=== PATIENT | female | born 1965 | race Caucasian/White ===

== ENCOUNTER → 2019-07-04 | Outpatient (CLI) | payer OTHER | LOC: M.RAD 16:06 | DX: M16.11 Unilateral primary osteoarthritis, right hip (principal); M48.02 Spinal stenosis, cervical region; M25.78 Osteophyte, vertebrae; M50.322 Other cervical disc degeneration at C5-C6 level; V89.2XXA Person injured in unspecified motor-vehicle accident, traffic, initial encounter ==

== ENCOUNTER → 2019-09-26 | Outpatient (CLI) | payer OTHER | LOC: M.LAB 12:04 | DX: Z20.828 Contact with and (suspected) exposure to other viral communicable diseases (principal) ==

== ENCOUNTER → 2020-06-30 | Outpatient (CLI) | payer OTHER ==
--- NOTE | 2020-07-02 16:06 | PATH ---
[address] [address] PATHOLOGY RPT PROCEDURE Name: BERTRAM PITTMAN Bridget Room: [facility] Manda#: [id number] Admission: 06/30/20 Date of : 65 Discharge: Report #: [id number] Path Case #: [id number] [facility] Accession Number: [id number] . 01 Material submitted: . breast - RIGHT BREAST CALCIFICATIONS. Modifiers: right . 01 Clinical history: . RIGHT BREAST STEREOTACTIC BIOPSY FOR CALCIFICATION . 02 Diagnosis: Right breast calcifications, stereotactic biopsy: - Benign breast tissue with usual duct epithelial hyperplasia, small fibroadenoma with stromal calcifications, mild chronic inflammation and luminal calcifications, negative for atypia. See comment. (JEWELL:maris; 07/02/2020) QMS 07/02/2020 [facility] Local . 02 Comment: Reviewed with Dr. Karlos Temple, who agrees with the diagnosis. (JEWELL:maris; 07/02/2020) . 02 Electronically signed: . Ronen Park MD, Pathologist NPI- [id number] . 01 Gross description: . The specimen is received in formalin, labeled "Bertram Pittman, right breast calcifications" and consists of a blue cassette containing needle cores of yellow fibroadipose tissue measuring 2.5 x 1.8 x 0.6 cm in aggregate which are transferred to cassette A1. Also received are multiple needle cores of yellow fibroadipose tissue measuring 5.8 x 2.0 x 0.6 cm in aggregate which are entirely submitted in A2-A3. The specimen was collected at 1:45 PM on 06/30/2020 and placed in formalin at 1:53 PM. The cold ischemic time is 8 minutes and the total formalin fixation time is greater than 6 hours less than 72 hours. (SDY; 07/01/2020) SYU/SYU 07/02/2020 1019 Local . 02 Pathologist provided ICD-10: D24.1, N62, N61.0 . 02 CPT . [id number] Specimen Comment: A courtesy copy of this report has been sent to [phone] Specimen Comment: [id number], Specimen Comment: Report sent to ,DR GRAY / [place] [address] PATHOLOGY RPT PROCEDURE Name: BERTRAM PITTMAN Room: [facility]#: [id number] Admission: 06/30/20 Date of : 65 Discharge: Report #: [id number] Path Case #: [id number] Specimen Comment: A duplicate report has been generated due to demographic updates. Performed at: 01 [facility] [address], [place], [place] [id number] MD Landon Marks MD Phone: [phone] Performed at: 02 [facility] [address], [place], [place] [id number] MD Ronen Park MD Phone: [phone]
== END | disposition home or self-care (01) ==
LOC: M.RAD 11:00
PROVIDERS: ATTEND Registered Nurse Diabetes Educator
DX: R92.0 Mammographic microcalcification found on diagnostic imaging of breast (principal); N62 Hypertrophy of breast; D24.1 Benign neoplasm of right breast; N61.0 Mastitis without abscess